=== PATIENT | female | born 1940 | race Caucasian/White ===

== ENCOUNTER 2021-12-26 22:14 | Emergency (ER) | payer MEDICARE ==
[~2021-12-26] VITALS: Ht 170.2 cm; Wt 65.8 kg
[2021-12-26 23:03] VITALS: BP 178/94
--- NOTE | 2021-12-26 23:25 | NUR ---
Patient does not wish to proceed with medical care recommended by NELLY Blas. Patient given information related to possible complications, up to and including , which could occur as a result of leaving the hospital at this time. Patient verbalizes understanding of risks involved due to leaving against medical advice. Patient has signed AMA form.
== END 2021-12-26 23:30 | disposition home or self-care (01) ==
LOC: ER 22:16
DX: S51.011A Laceration without foreign body of right elbow, initial encounter (principal); S01.511A Laceration without foreign body of lip, initial encounter; S80.211A Abrasion, right knee, initial encounter; W18.09XA Striking against other object with subsequent fall, initial encounter; Y93.89 Activity, other specified; Y92.89 Other specified places as the place of occurrence of the external cause; Y99.8 Other external cause status
CPT/HCPCS: 70486-TC